=== PATIENT | female | born 2000 | race Caucasian/White ===

== ENCOUNTER 2021-07-23 14:50 | Outpatient (CLI) | payer OTHER ==
[~2021-07-23 14:50] MED LIST: AUGMENTIN 875-1 EACH PO; BACTRIM DS TAB1 EACH PO; DIMETAPP COLD237 M1 PO; MACROBID 100 M100 MG PO; NAPROSYN500 MG PO; PROAIR HFA8.5 GM INH; PYRIDIUM200 MG PO; TORADOL 10 MG T10 MG PO; ZOFRAN ODT 4 MG4 MG PO
== END 2021-07-23 15:42 | disposition home or self-care (01) ==
LOC: GENOP 14:50
DX: O47.03 False labor before 37 completed weeks of gestation, third trimester (principal); Z3A.35 35 weeks gestation of pregnancy
CPT/HCPCS: G0463

== ENCOUNTER 2021-08-16 16:40 | Inpatient (IN) | payer OTHER ==
[~2021-08-16] VITALS: Ht 157.5 cm; Wt 73.5 kg
[2021-08-16 18:19] LABS: RED BLOOD COUNT 4.07 M/UL (4.00-5.10); WHITE BLOOD COUNT 10.5 K/UL (4.5-11.0)
[2021-08-16] MEDS ORDERED: PRENATAL TABLE1 EAC1 PO (18:52)
[2021-08-18 04:52] LABS: HEMOGLOBIN 9.1 gm/dl (12.3-15.3)
[2021-08-19] MEDS ORDERED: COLACE 100MG C100 MG PO (13:25)
[2021-08-19] MEDS ORDERED: IBUPROFEN600 MG PO (13:25)
== END 2021-08-19 14:39 | disposition home or self-care (01) | DRG 807 ==
LOC: GENOP 16:40 → OB 16:59
PROVIDERS: Obstetrics & Gynecology; ADMIT Obstetrics & Gynecology
PROC: 10E0XZZ Delivery of Products of Conception, External Approach (ICD-10-PCS; principal; 2021-08-16)
PROC: 10907ZC Drainage of Amniotic Fluid, Therapeutic from Products of Conception, Via Natural or Artificial Opening (ICD-10-PCS; 2021-08-16)
PROC: 4A1HXCZ Monitoring of Products of Conception, Cardiac Rate, External Approach (ICD-10-PCS; 2021-08-16)
PROC: 0HQ9XZZ Repair Perineum Skin, External Approach (ICD-10-PCS; 2021-08-16)
PROC: 3E0234Z Introduction of Serum, Toxoid and Vaccine into Muscle, Percutaneous Approach (ICD-10-PCS; 2021-08-17)
DX: O99.824 Streptococcus B carrier state complicating childbirth (principal); Z37.0 Single live birth; O70.0 First degree perineal laceration during delivery; Z3A.38 38 weeks gestation of pregnancy; Z28.310 Unvaccinated for COVID-19; Z20.822 Contact with and (suspected) exposure to COVID-19; Z82.49 Family history of ischemic heart disease and other diseases of the circulatory system; Z83.3 Family history of diabetes mellitus; Z80.3 Family history of malignant neoplasm of breast; Z23 Encounter for immunization; O99.334 Smoking (tobacco) complicating childbirth; F17.290 Nicotine dependence, other tobacco product, uncomplicated
CPT/HCPCS: 36415; 81001; 82800; 85014; 85018; 85025; 90471; 90715; J0595; J3430; J7120; U0002